=== PATIENT | male | born 1965 ===

== ENCOUNTER 2016-10-20 13:03 | Observation (INO) | payer OTHER ==
[2016-10-20 13:09] VITALS: RESP 18
--- NOTE | 2016-10-20 14:03 | C.PDOC ---
History Of Present Illness Patient is a 51 y/o male that presents to the ED for evaluation of intermittent LLQ abdominal pain for the last 2 days. Patient states that his pain was constant today with associated 3 episodes of watery/loose stools which prompted him to visit ED today. Otherwise, denies nausea, vomiting, fever, chills, dysuria, recent travel, dysphagia, GI bleeding, or any other associated symptoms at this time. Time Seen by Provider: 10/20/16 13:17 Chief Complaint (Nursing): Abdominal Pain History Per: Patient History/Exam Limitations: no limitations Onset/Duration Of Symptoms: Days (2) Current Symptoms Are (Timing): Still Present Severity: Mild Pain Scale Rating Of: 3 Location Of Pain/Discomfort: LLQ Radiation Of Pain To:: None Quality Of Discomfort: "Pain" Associated Symptoms: Diarrhea. denies: Fever, Chills, Nausea, Vomiting, Loss Of Appetite, Back Pain, Chest Pain, Constipation, Urinary Symptoms Exacerbating Factors: None Alleviating Factors: None Recent travel outside of the [place]: No Additional History Per: Patient Past Medical History Reviewed: Historical Data, Nursing Documentation, Vital Signs Vital Signs: Last Vital Signs Temp 97.6 F 10/20/16 16:43 Pulse 82 10/20/16 16:43 Resp 18 10/20/16 16:43 BP 147/90 10/20/16 16:43 Pulse Ox 97 10/20/16 16:43 - Medical History PMH: HTN, Hypercholesterolemia Family History: States: No Known Family Hx - Social History Hx Alcohol Use: No Hx Substance Use: No - Immunization History Hx Tetanus Toxoid Vaccination: Yes Hx Influenza Vaccination: Yes Hx Pneumococcal Vaccination: No Review Of Systems Except As Marked, All Systems Reviewed And Found Negative. Constitutional: Negative for: Fever, Chills Gastrointestinal: Positive for: Abdominal Pain (LLQ), Diarrhea. Negative for: Nausea, Vomiting, Constipation, Hematochezia Genitourinary: Negative for: Dysuria, Frequency, Hematuria Musculoskeletal: Negative for: Back Pain Physical Exam - Physical Exam Appears: Non-toxic, No Acute Distress Skin: Normal Color, Warm, Dry Head: Atraumatic, Normacephalic Eye(s): bilateral: Normal Inspection, EOMI Neck: Normal ROM, Supple Chest: Symmetrical, No Tenderness Cardiovascular: Rhythm Regular, No Murmur Respiratory: Normal Breath Sounds, No Accessory Muscle Use, No Rales, No Rhonchi , No Wheezing Gastrointestinal/Abdominal: Soft, Tenderness (mild LLQ), No Distention, No Guarding, No Rebound Back: No CVA Tenderness Extremity: Normal ROM Neurological/Psych: Oriented x3, Normal Speech, Normal Cognition ED Course And Treatment - Laboratory Results Result Diagrams: 10/20/16 13:58 10/20/16 13:58 O2 Sat by Pulse Oximetry: 98 (on RA) Pulse Ox Interpretation: Normal - CT Scan/US Abd & pelvis CT Other Rad Studies (CT/US): Read By Radiologist, Radiology Report Reviewed CT/US Interpretation: FINDINGS: LOWER THORAX: Small hiatal hernia. Heart size upper limits of normal. No significant pericardial effusion. No basilar infiltrate or atelectasis. LIVER: Liver exhibits normal size. Mild moderate fatty hepatic infiltration. No obvious hepatic mass collection or calcification. The PE to the. GALLBLADDER AND BILE DUCTS: Several tiny intraluminal gallbladder calculi seen. PANCREAS: Unremarkable. No mass. No ductal dilatation. SPLEEN: Unremarkable. No splenomegaly. ADRENALS: Unremarkable. KIDNEYS AND URETERS: Unremarkable. No stone or hydronephrosis. BLADDER: Grossly unremarkable. REPRODUCTIVE: Unremarkable. APPENDIX: Normal -appearing appendix. BOWEL: Evaluation of the bowel is limited due to the lack of oral contrast material. Visualized loops small bowel exhibit normal contour and caliber however contain fluid throughout and minimal wall prominence with 1 or 2 loops exhibiting slightly more prominent wall thickening. Findings are nonspecific however could represent an enteritis. Clinical correlation recommended. Most of the colon is collapsed of with the exception of a small amount of fluid in the cecum and proximal ascending colon there may also be a few scattered colonic diverticula. PERITONEUM: Unremarkable. No fluid collection. No free air. LYMPH NODES: Unremarkable. No enlarged lymph nodes. VASCULATURE: Unremarkable. No aortic aneurysm. BONES: No fracture or destructive lesion. New note made of a few tiny sclerotic foci both femoral heads likely representing small bone islands or osteomas. OTHER FINDINGS: None. IMPRESSION: There are multiple nondistended fluid-filled loops of small bowel which exhibit minimal wall prominence with 1 or 2 slightly more significant wall thickening. Findings are nonspecific however rule out enteritis. Mild to moderate fatty hepatic infiltration. Cholelithiasis Progress Note: Labs, abd & pelvis CT ordered and reviewed. Patient was treated with Morphine IVP, Toradol IVP, and Zofran inj. ED OBSERVATION Discharge: Yes Date of observation admission: 10/20/16 Time of observation admission: 13:00 - Observation admission statement Patient is being placed in observation because:: abdominal pain - Goals of Observation Goals of observation are:: rule out acute abdomen - Progress Note Progress Note: 10/20/16 1600 On re-exam, the patient reports improvement of symptoms. Lungs are CTA, heart is RRR abdomen is soft, non-tender and tolerating PO well. Ambulatory in the ED with steady gait. Disposition - Disposition Disposition: HOME/ ROUTINE Disposition Time: 16:00 Condition: IMPROVED - Clinical Impression Clinical Impression: Enteritis, Abdominal pain - PA / [employer] / Resident Statement MD/DO has reviewed & agrees with the documentation as recorded. - Scribe Statement The provider has reviewed the documentation as recorded by the Selenaibdelgado Segal All medical record entries made by the Joe were at my direction and personally dictated by me. I have reviewed the chart and agree that the record accurately reflects my personal performance of the history, physical exam, medical decision making, and the department course for this patient. I have also personally directed, reviewed, and agree with the discharge instructions and disposition.
[2016-10-20 14:06] LABS: BASO % 0.5 % (0.0-2.0); EOS # 0.1 K/uL (0.0-0.7); EOS % 1.9 % (0.0-4.0); HEMATOCRIT 39.9 % (35.0-51.0); LYMPH # 1.3 K/uL (1.0-4.3); LYMPH % 21.1 % (20.0-40.0); MEAN CELL VOLUME 85.8 fL (80.0-94.0); MEAN CORPUSCULAR HEMOGLOBIN 28.8 pg (27.0-31.0); MEAN CORPUSCULAR HGB CONC 33.5 g/dL (33.0-37.0); MEAN PLATELET VOLUME 9.2 fL (7.2-11.7); MONO # 0.4 K/uL (0.0-0.8); MONO % 6.2 % (0.0-10.0); NRBC % 0.1 % (0.0-2.0)
[2016-10-20 14:10] LABS: CHLORIDE 102 mmol/L (98-107)
[2016-10-20 14:11] LABS: POTASSIUM 3.4 mmol/L (3.6-5.2); SODIUM 142 mmol/L (132-148)
[2016-10-20 14:14] LABS: ALB/GLOB RATIO 1.5 (1.0-2.1); ALKALINE PHOSPHATASE 74 U/L (38-126); ALT/SGPT 19 U/L (21-72); AST/SGOT 29 U/L (17-59); BILIRUBIN,TOTAL 0.5 mg/dL (0.2-1.3); BLOOD UREA NITROGEN 12 mg/dL (9-20); CALCIUM 9.1 mg/dl (8.6-10.4); CARBON DIOXIDE 24 mmol/L (22-30); GFR AFRICAN-AMERICAN > 60; GLUCOSE,RANDOM 117 mg/dL (75-110); TOTAL PROTEIN 7.5 g/dL (6.3-8.3)
[2016-10-20] MEDS ORDERED: Iodixanol 320 MG/ML 100 ML BOTTLE IV ONE (14:28)
[2016-10-20 14:36] LABS: RBC URINE 1 /hpf (0-3); URINE BACTERIA RARE (<OCC); URINE BILIRUBIN NEGATIVE (NEGATIVE); URINE BLOOD NEGATIVE (NEGATIVE); URINE COLOR Amber (YELLOW); URINE GLUCOSE (UA) NORMAL (Normal); URINE KETONE NEGATIVE (NEGATIVE); URINE LEUKOCYTE ESTERASE NEG Leu/uL (Negative); URINE PROTEIN 1+ mg/dL (NEGATIVE); URINE UROBILINOGEN NORMAL mg/dL (0.2-1.0); WBC URINE 3 /hpf (0-5)
--- NOTE | 2016-10-20 15:44 | CT ---
PROCEDURE: CT Abdomen and Pelvis. HISTORY: LLQ abd pain, diarrhea COMPARISON: None. TECHNIQUE: Contiguous axial images of the abdomen and pelvis following intravenous injection of approximately 100 cc Visipaque 320 contrast material. Radiation dose: Total exam DLP = 535.16 MGy-cm. This CT exam was performed using one or more of the following dose reduction techniques: Automated exposure control, adjustment of the mA and/or kV according to patient size, and/or use of iterative reconstruction technique. FINDINGS: LOWER THORAX: Small hiatal hernia. Heart size upper limits of normal. No significant pericardial effusion. No basilar infiltrate or atelectasis. LIVER: Liver exhibits normal size. Mild moderate fatty hepatic infiltration. No obvious hepatic mass collection or calcification. The PE to the GALLBLADDER AND BILE DUCTS: Several tiny intraluminal gallbladder calculi seen. PANCREAS: Unremarkable. No mass. No ductal dilatation. SPLEEN: Unremarkable. No splenomegaly. ADRENALS: Unremarkable. KIDNEYS AND URETERS: Unremarkable. No stone or hydronephrosis. BLADDER: Grossly unremarkable. REPRODUCTIVE: Unremarkable. APPENDIX: Normal-appearing appendix BOWEL: Evaluation of the bowel is limited due to the lack of oral contrast material. Visualized loops small bowel exhibit normal contour and caliber however contain fluid throughout and minimal wall prominence with 1 or 2 loops exhibiting slightly more prominent wall thickening. Findings are nonspecific however could represent an enteritis. Clinical correlation recommended. Most of the colon is collapsed of with the exception of a small amount of fluid in the cecum and proximal ascending colon there may also be a few scattered colonic diverticula. PERITONEUM: Unremarkable. No fluid collection. No free air. LYMPH NODES: Unremarkable. No enlarged lymph nodes. VASCULATURE: Unremarkable. No aortic aneurysm. BONES: No fracture or destructive lesion. New note made of a few tiny sclerotic foci both femoral heads likely representing small bone islands or osteomas. OTHER FINDINGS: None. IMPRESSION: There are multiple nondistended fluid-filled loops of small bowel which exhibit minimal wall prominence with 1 or 2 slightly more significant wall thickening. Findings are nonspecific however rule out enteritis. Mild to moderate fatty hepatic infiltration. Cholelithiasis
[2016-10-20 16:44] VITALS: BP 147/90; PULSE 82; TEMP 97.6
[2016-10-20 17:40] VITALS: O2SAT 98
== END 2016-10-20 17:41 | disposition home or self-care (01) ==
LOC: C.ER 13:03 → C.9OBSV 13:44
PROVIDERS: ADMIT Emergency Medicine; ATTEND Emergency Medicine
DX: K52.9 Noninfective gastroenteritis and colitis, unspecified (principal); I10 Essential (primary) hypertension; E78.00 Pure hypercholesterolemia, unspecified; R10.32 Left lower quadrant pain
CPT/HCPCS: 36415; 74177; 80053; 81001; 83690; 85025; 96374; G0378; J1885; J2270; J2405; Q9967

== ENCOUNTER 2018-09-14 11:54 | Emergency (ER) | payer OTHER ==
[2018-09-14 12:35] VITALS: BMI 28.3
[2018-09-14 12:37] VITALS: O2SAT 100
[2018-09-14] MEDS ORDERED: Sodium Chloride 0.9% 1,000 ML IV ONE (14:21)
[2018-09-14 14:58] LABS: BASO % 0.3 % (0.0-2.0); EOS # 0.1 K/uL (0.0-0.7); EOS % 0.5 % (0.0-4.0); HEMOGLOBIN 14.7 g/dL (12.0-18.0); LYMPH # 1.5 K/uL (1.0-4.3); LYMPH % 12.3 % (20.0-40.0); MEAN CELL VOLUME 89.9 fL (80.0-94.0); MEAN CORPUSCULAR HEMOGLOBIN 30.8 pg (27.0-31.0); MEAN CORPUSCULAR HGB CONC 34.2 g/dL (33.0-37.0); MEAN PLATELET VOLUME 9.1 fL (7.2-11.7); MONO # 0.9 K/uL (0.0-0.8); MONO % 7.2 % (0.0-10.0); NEUT # 9.4 K/uL (1.8-7.0); NEUT % 79.7 % (50.0-75.0); RBC 4.77 Mil/uL (4.40-5.90); RED CELL DISTRIBUTION WIDTH 13.3 % (11.5-14.5); WHITE BLOOD COUNT 11.9 K/uL (4.8-10.8)
[2018-09-14] MEDS ORDERED: Sodium Chloride 0.9% 1,000 ML ONE (15:06)
[2018-09-14 15:09] LABS: ALB/GLOB RATIO 1.4 (1.0-2.1); ALBUMIN 4.9 g/dL (3.5-5.0); ALT/SGPT 39 U/L (21-72); AST/SGOT 50 U/L (17-59); BLOOD UREA NITROGEN 9 mg/dL (9-20); CALCIUM 10.1 mg/dl (8.6-10.4); GFR NON-AFRICAN AMERICAN > 60; LIPASE 97 U/L (23-300)
--- NOTE | 2018-09-14 15:14 | C.PDOC ---
History Of Present Illness 53 year old male presents to the emergency department with complaints of a painful lesion to his right medial buttock since last week. Patient reports taking anti-inflammatory medication with no improvement of symptoms. Patient denies fever, chills, nausea, vomiting, diarrhea. Time Seen by Provider: 09/14/18 14:10 Chief Complaint (Nursing): Abnormal Skin Integrity History Per: Patient History/Exam Limitations: no limitations Onset/Duration Of Symptoms: Other (one week) Current Symptoms Are (Timing): Still Present Location Of Injury: Right: Leg (buttock), Posterior: Leg Quality Of Symptoms: Painful Past Medical History Reviewed: Historical Data, Nursing Documentation, Vital Signs Vital Signs: Last Vital Signs Temp 99 F 09/14/18 12:33 Pulse 97 H 09/14/18 12:33 Resp 18 09/14/18 12:33 BP 155/93 H 09/14/18 12:33 Pulse Ox 100 09/14/18 12:33 - Medical History PMH: HTN, Hypercholesterolemia Surgical History: No Surg Hx Family History: States: No Known Family Hx - Social History Hx Alcohol Use: No Hx Substance Use: No - Immunization History Hx Tetanus Toxoid Vaccination: Yes Hx Influenza Vaccination: No Hx Pneumococcal Vaccination: No Review Of Systems Except As Marked, All Systems Reviewed And Found Negative. Constitutional: Negative for: Fever, Chills Respiratory: Negative for: Cough, Shortness of Breath Gastrointestinal: Negative for: Nausea, Vomiting, Abdominal Pain, Diarrhea Physical Exam - Physical Exam Appears: Non-toxic, No Acute Distress Skin: Normal Color, Warm, Dry Head: Atraumatic, Normacephalic Eye(s): bilateral: Normal Inspection, PERRL, EOMI Oral Mucosa: Moist Neck: Normal, Supple Chest: Symmetrical, No Tenderness Cardiovascular: Rhythm Regular, No Murmur Respiratory: Normal Breath Sounds, No Rales, No Rhonchi, No Wheezing Gastrointestinal/Abdominal: Soft, No Tenderness Extremity: Normal ROM, Swelling (brauny edema to the medial right gluteal fold, respects midline, measuring 10cm x 2cm), No Other (pilonidal cyst, no fluctuance) Neurological/Psych: Oriented x3, Normal Speech, Normal Cognition ED Course And Treatment - Laboratory Results Result Diagrams: 09/14/18 14:53 09/14/18 14:53 Lab Results: Total Bilirubin 0.8 mg/dL (0.2-1.3) 09/14/18 14:53 AST 50 U/L (17-59) 09/14/18 14:53 ALT 39 U/L (21-72) 09/14/18 14:53 Alkaline Phosphatase 129 U/L (38-126) H D 09/14/18 14:53 Total Protein 8.4 g/dL (6.3-8.3) H 09/14/18 14:53 Albumin 4.9 g/dL (3.5-5.0) 09/14/18 14:53 Globulin 3.5 gm/dL (2.2-3.9) 09/14/18 14:53 Albumin/Globulin Ratio 1.4 (1.0-2.1) 09/14/18 14:53 Lipase 97 U/L (23-300) 09/14/18 14:53 Lab Interpretation: Abnormal O2 Sat by Pulse Oximetry: 100 (RA) Pulse Ox Interpretation: Normal - Radiology CXR: Interpreted by Me CXR Interpretation: Yes: No Acute Disease Progress Note: zosyn, toradol, IVF Reevaluation Time: 19:19 Reassessment Condition: Improved Medical Decision Making Medical Decision Making: Plan: CT Abdomen and Pelvis IV Contrast CMP Lipase CBC Glucose POC NaCl IV Fluids Toradol 30mg IVP Urinalysis cellulitis without drainable component R medial buttock empiric abx and f/u with Gen Surg Disposition Doctor Will See Patient In The: Office Counseled Patient/Family Regarding: Studies Performed, Diagnosis - Disposition Disposition: HOME/ ROUTINE Disposition Time: 19:21 Condition: GOOD Forms: [facility] (Chilean) - Clinical Impression Clinical Impression: Cellulitis of buttock, right - Scribe Statement The provider has reviewed the documentation as recorded by the Scribe (Fady Morinqvi) Provider Attestation: All medical record entries made by the Scribe were at my direction and personally dictated by me. I have reviewed the chart and agree that the record accurately reflects my personal performance of the history, physical exam, medical decision making, and the department course for this patient. I have also personally directed, reviewed, and agree with the discharge instructions and disposition.
[2018-09-14 16:26] LABS: URINE BILIRUBIN NEGATIVE (NEGATIVE); URINE BLOOD NEGATIVE (NEGATIVE); URINE CLARITY Clear (Clear); URINE COLOR Yellow (YELLOW); URINE GLUCOSE (UA) NORMAL (Normal); URINE LEUKOCYTE ESTERASE NEG Leu/uL (Negative); URINE PROTEIN NEGATIVE (NEGATIVE); URINE UROBILINOGEN NORMAL mg/dL (0.2-1.0)
[2018-09-14] MEDS ORDERED: Iodixanol 320 MG/ML 100 ML BOTTLE IV ONE (17:46)
--- NOTE | 2018-09-14 19:00 | CT ---
Date of service: 09/14/2018 PROCEDURE: CT Abdomen and Pelvis with contrast HISTORY: R medial gluteal abscess vs cellulitis COMPARISON: 10/20/2016 CT abdomen and pelvis. TECHNIQUE: Intravenous contrast dose: 100 cc Visipaque 320. Radiation dose: Total exam DLP = 512.29 mGy-cm. This CT exam was performed using one or more of the following dose reduction techniques: Automated exposure control, adjustment of the mA and/or kV according to patient size, and/or use of iterative reconstruction technique. FINDINGS: LOWER THORAX: Unremarkable. LIVER: Hepatic steatosis. No focal masses. No intrahepatic bile duct dilatation or perihepatic ascites. GALLBLADDER AND BILE DUCTS: Cholelithiasis without CT evidence of acute cholecystitis. PANCREAS: Unremarkable. No gross lesion or ductal dilatation. SPLEEN: Unremarkable. ADRENALS: Unremarkable. No mass. KIDNEYS AND URETERS: Unremarkable. No hydronephrosis. No solid mass. VASCULATURE: Unremarkable. No aortic aneurysm. Atherosclerotic calcification and mural plaque present. Findings are seen throughout the aorta which is non aneurysmal. BOWEL: Diverticulosis without an acute inflammatory component or other associated pathologic process. APPENDIX: Normal appendix. PERITONEUM: Unremarkable. No free fluid. No free air. LYMPH NODES: Unremarkable. No enlarged lymph nodes. BLADDER: Unremarkable. REPRODUCTIVE: Unremarkable. BONES: No acute fracture. OTHER FINDINGS: Inflammatory changes extending from the perineum inferiorly. These extend to the skin surface posteriorly and to the right of the midline. No drainable collection or abscess. No fistulous or sinus tract identified. No intrapelvic abnormalities. IMPRESSION: Cellulitis the origin appears to be in the perineum. Although there is a cutaneous and subcutaneous component, there is no sinus tract or fistulous communication no drainable collection. Cholelithiasis without CT evidence of acute cholecystitis.
[2018-09-14] MEDS ORDERED: Amoxicillin-Clav 875-125 mg Tab PO STA (19:20)
[2018-09-14 19:31] VITALS: BP 142/90; PULSE 101; RESP 19; TEMP 99.4
[2018-09-14] MEDS ORDERED: Amoxicillin-Clav 875-125 mg Tab PO ONE (19:44)
== END 2018-09-14 19:50 | disposition home or self-care (01) ==
LOC: C.ER 11:54
DX: L03.317 Cellulitis of buttock (principal); I10 Essential (primary) hypertension; E78.00 Pure hypercholesterolemia, unspecified
CPT/HCPCS: 74177; 80053; 81001; 82948; 83690; 85025; 96361; 96374; 99284; J1885; J7030; Q9967

== ENCOUNTER 2018-11-06 08:53 | Outpatient (CLI) | payer OTHER | END 2018-11-06 08:54 | disposition home or self-care (01) | LOC: C.LAB 08:53 | DX: I10 Essential (primary) hypertension (principal); R73.03 Prediabetes; E78.2 Mixed hyperlipidemia; Z12.11 Encounter for screening for malignant neoplasm of colon; Z12.5 Encounter for screening for malignant neoplasm of prostate ==

== ENCOUNTER 2018-11-13 11:38 | Outpatient (CLI) | payer OTHER | END 2018-11-13 11:39 | disposition home or self-care (01) | LOC: C.USIC 11:38 | DX: Z00.01 Encounter for general adult medical examination with abnormal findings (principal); Z12.11 Encounter for screening for malignant neoplasm of colon ==